=== PATIENT | male | born 1990 | race African-American/Black ===

== ENCOUNTER 2023-02-24 11:14 | Emergency (ER) | payer SELFPAY ==
[~2023-02-24] VITALS: Ht 175.3 cm; Wt 85.4 kg
[2023-02-24] VITALS (10 sets, daily range): BP systolic 109–131; BP diastolic 63–83
[2023-02-24] MEDS ORDERED: ANUCORT-HC25 MG RE ×2 (13:00→13:01)
[2023-02-24] MEDS ORDERED: ZPAK PO ×2 (13:00→13:01)
[2023-02-24] MEDS ORDERED: KENALOG15 GM/TUBE EX ×2 (13:00→13:01)
== END 2023-02-24 14:14 | disposition home or self-care (01) | DRG 395 ==
LOC: ED 11:14
DX: K64.8 Other hemorrhoids (principal); J06.9 Acute upper respiratory infection, unspecified; B35.6 Tinea cruris